=== PATIENT | female | born 1945 | race Caucasian/White ===

== ENCOUNTER 2020-08-03 13:58 | Inpatient (IN) | payer MEDICARE, OTHER ==
[~2020-08-03] VITALS: Ht 162.6 cm; Wt 95.3 kg
--- NOTE | 2020-08-03 14:30 | NUR ---
RAPID COVID SWAB DONE AND SENT TO LAB
[2020-08-03] MEDS ORDERED: ROSU20TA32 PO (14:39)
[2020-08-03] MEDS ORDERED: VALS160T29 PO (14:39)
[2020-08-03] MEDS ORDERED: APIX5TAB PO (14:39)
[2020-08-03] MEDS ORDERED: HYDR-4076 PO (14:39)
[2020-08-03 14:40] LABS: BASOPHILS # (AUTO) 0.1 /CMM (0.0-0.2); BASOPHILS % (AUTO) 0.8 % (0.0-2.0); EOSINOPHILS % (AUTO) 0.6 % (0.0-6.0); HEMATOCRIT 36 % (33-45); HEMOGLOBIN 11.6 g/dL (11.5-14.8); LYMPHOCYTES # (AUTO) 1.6 /CMM (0.8-4.8); LYMPHOCYTES % (AUTO) 21.4 % (20.0-44.0); MEAN CORPUSCULAR HGB CONC 32 g/dl (31.0-36.0); MEAN CORPUSCULAR VOLUME 88 fL (82-100); MONOCYTES # (AUTO) 0.4 /CMM (0.1-1.30); NEUTROPHILS # (AUTO) 5.2 /CMM (1.8-8.9); NEUTROPHILS % (AUTO) 71.2 % (43.0-81.0); PLATELET COUNT (AUTO) 232 /CMM (150-450); RED BLOOD CELL COUNT(AUTO) 4.09 MIL/uL (4.0-5.2); WHITE BLOOD COUNT (AUTO) 7.3 K/uL (4.3-11.0)
[2020-08-03 14:48] LABS: CARBON DIOXIDE 24 mmol/L (21-32); CHLORIDE 108 mmol/L (98-107); CREATININE 1.4 mg/dL (0.6-1.3); GLUCOSE 113 mg/dL (74-106); POTASSIUM 4.3 mmol/L (3.5-5.1); SODIUM SERUM 141 mmol/L (136-145); UREA NITROGEN, BLOOD 33 mg/dL (7-18)
--- NOTE | 2020-08-03 14:58 | NUR ---
DR GREEN AT BEDSIDE
[2020-08-03] MEDS ORDERED: MAGNESIUM HYDROXIDE 30 ML UDC PO PRN (15:00)
[2020-08-03] MEDS ORDERED: ACETAMINOPHEN 325 MG TABLET PO PRN (15:00)
[2020-08-03] MEDS ORDERED: Z GUARD REMEDY 2 OZ OINT TP PRN (15:00)
[2020-08-03] MEDS ORDERED: ONDANSETRON HCL/PF 4 MG/2 ML VIAL IVP PRN (15:00)
[2020-08-03] MEDS ORDERED: ZOLPIDEM TARTRATE 5 MG TABLET PO PRN (15:00)
[2020-08-03] MEDS ORDERED: MAG HYDROX/AL HYDROX/SIMETH 30 ML UDC PO PRN (15:00)
--- NOTE | 2020-08-03 15:00 | NUR ---
PATIENT VERBALIZED THAT THE LAST TIME SHE ATE AND DRANK FLUIDS WAS 0700. DR NORMA COMBS
--- NOTE | 2020-08-03 15:02 | NUR ---
PATIENT SIGNED CONSENT FOR PACEMAKER INSERTION, ANESTHESIA AND BLOOD TRANSFUSION
[2020-08-03] MEDS ORDERED: LIDOCAINE HCL/MPF 1% 30 ML VIAL IJ ONE (15:55)
[2020-08-03] MEDS ORDERED: ANESTHESIA TRAY IN PYXIS 1 EA TRAY MC ONE (15:55)
[2020-08-03] MEDS ORDERED: CELLULOSE,OXIDIZED 1 PKT EACH MC ONE (16:25)
[2020-08-03] MEDS ORDERED: APIXABAN 5 MG TABLET PO SCH (17:00)
[2020-08-03] MEDS ORDERED: hydrALAZINE HCL 25 MG TABLET PO SCH (17:00)
--- NOTE | 2020-08-03 17:30 | NUR ---
PT RECEIVED FROM OR AFTER REPORT RECEIVED FROM ELPIDIO MEZA. PT RESTING COMFORTABLY IN BED. PT ORIENTED TO RN, ROOM, AND UNIT POLICIES REGARDING PATIENT CARE. PT PLACED ON TELE MONITOR; READING ON ARRIVAL IS PACED AT 60. SURGICAL SITE ASSESSED. NO S/S BLEEDING OR INFECTION. WILL CONTINUE PLAN OF CARE.
[2020-08-03] MEDS ORDERED: HYDROCODONE/APAP 5/325MG TABLET PO PRN ×2 (18:00)
[2020-08-03] MEDS ORDERED: MORPHINE SULFATE INJ 2 MG/ML DISP.SYRIN IV PRN (18:00)
[2020-08-03] MEDS ORDERED: ATORVASTATIN 40 MG TABLET PO SCH (18:00)
[2020-08-03] MEDS: VALSARTAN 80 MG TABLET PO SCH (18:25)
[2020-08-03] MEDS: ATORVASTATIN 40 MG TABLET PO SCH (18:26)
[2020-08-03] MEDS: APIXABAN 5 MG TABLET PO SCH (18:32)
[2020-08-03 20:00] VITALS: BP 112/57
[2020-08-04] VITALS (9 sets, daily range): BP systolic 112–149; BP diastolic 69–85
--- NOTE | 2020-08-04 07:30 | NUR ---
MS/RN Opening note Patient received from manufacturing shift supervisor. A/O X4, vital signs stable, denies any pain or discomfort at this time. Dressing to left chest wall from pacemaker insertion yesterday clean and dry. Heplock to left forearm flushing well with normal saline, no signs of infiltration seen. All questions and concerns addressed/answered. Safety measures in place, bed in low setting, side rails X3 in upright position. Call light within reach, will continue to monitor and ensure safety.
[2020-08-04] MEDS: APIXABAN 5 MG TABLET PO SCH ×2 (08:29→19:41)
[2020-08-04] MEDS ORDERED: FUROSEMIDE 20 MG/2 ML VIAL IV ONE (08:30)
[2020-08-04] MEDS: VALSARTAN 80 MG TABLET PO SCH ×2 (08:34→19:39)
[2020-08-04] MEDS: METOPROLOL TARTRATE 25 MG TABLET PO SCH ×2 (08:36→21:07)
--- NOTE | 2020-08-04 08:45 | NUR ---
MS/RN S/B Dr Yadav Seen by MD - concerned for pacemaker lead detachment. Stat 2D echo and chest x-ray ordered.
[2020-08-04] MEDS: AMIODARONE HCL 200 MG TABLET PO SCH ×2 (09:50→21:07)
--- NOTE | 2020-08-04 10:08 | NUR ---
MS/RN Chest x-ray Chest x-ray resulted as pacemaker right atrial lead position change. Correlation recommended for atrial lead detachment.
--- NOTE | 2020-08-04 10:55 | NUR ---
MS/RN Dr Espinosa [facility] called to page Dr Espinosa to inform of chest x-ray results, no answer at exchange. Will reattempt to call in 10 minutes.
[2020-08-04] MEDS: HYDROCODONE/APAP 5/325MG TABLET PO PRN ×2 (12:35→19:50)
[2020-08-04] MEDS ORDERED: IOHEXOL 240MG/ML 0 ML IV ONE (16:04)
[2020-08-04] MEDS ORDERED: LIDOCAINE HCL/MPF 1% 30 ML VIAL IJ ONE (16:04)
--- NOTE | 2020-08-04 16:06 | NUR ---
MS/emergency room clinician Patient transported to operating room in stable condition.
[2020-08-04] MEDS ORDERED: FENTANYL PF 100MCG/2ML AMPUL ONE (16:17)
--- NOTE | 2020-08-04 17:46 | NUR ---
MS/RN Post operative Patient received back from operating room, s/p reinsertion of pacemaker right atrial lead. Upon return, vital signs recorded as per protocol, all within normal limits. Tele showing rhythm of pacing, heart rate 83. Dressing to left chest wall dry and intact. Will continue to monitor and ensure safety.
--- NOTE | 2020-08-04 18:31 | NUR ---
MS/RN End note Patient remains in stable condition, no drainage noted through dressing to left chest wall. Requesting to take evening medications after eating later this evening as still feeling lethargic following surgery. Vital signs charted, no fever noted, denies any pain or discomfort. Will endorse to operations supervisor 2nd shift.
[2020-08-04] MEDS: ATORVASTATIN 40 MG TABLET PO SCH (19:40)
[2020-08-05] VITALS: BP 121/68
[2020-08-05 04:00] VITALS: BP 144/96
[2020-08-05 07:01] LABS: BASOPHILS % (AUTO) 0.3 % (0.0-2.0); EOSINOPHILS % (AUTO) 0.4 % (0.0-6.0); HEMATOCRIT 39 % (33-45); HEMOGLOBIN 12.7 g/dL (11.5-14.8); LYMPHOCYTES # (AUTO) 1.2 /CMM (0.8-4.8); MEAN CORPUSCULAR HGB CONC 33 g/dl (31.0-36.0); MEAN CORPUSCULAR VOLUME 86 fL (82-100); MONOCYTES # (AUTO) 0.7 /CMM (0.1-1.30); MONOCYTES % (AUTO) 11.1 % (2.0-12.0); NEUTROPHILS # (AUTO) 4.4 /CMM (1.8-8.9); NEUTROPHILS % (AUTO) 69.2 % (43.0-81.0); PLATELET COUNT (AUTO) 193 /CMM (150-450); WHITE BLOOD COUNT (AUTO) 6.4 K/uL (4.3-11.0)
[2020-08-05 07:18] LABS: ALBUMIN 3.3 g/dL (3.4-5.0); BILIRUBIN,TOTAL 0.6 mg/dL (0.2-1.0); CALCIUM, SERUM 8.7 mg/dL (8.5-10.1); CREATININE 1.3 mg/dL (0.6-1.3); POTASSIUM 4.2 mmol/L (3.5-5.1); TOTAL PROTEIN, SERUM 7.6 g/dL (6.4-8.2)
--- NOTE | 2020-08-05 07:33 | NUR ---
RN NOTES Pt asleep on bed, no new complaints made. All nursing needs attended, due meds given as ordered. Endorsed.
[2020-08-05 08:00] VITALS: BP 142/88
--- NOTE | 2020-08-05 08:00 | NUR ---
received in am alert and oriented x4.lt. chest dressing dry and intact.vs stable.hob elevated.
[2020-08-05] MEDS: METOPROLOL TARTRATE 25 MG TABLET PO SCH (08:55)
[2020-08-05] MEDS: AMIODARONE HCL 200 MG TABLET PO SCH (08:56)
[2020-08-05] MEDS: APIXABAN 5 MG TABLET PO SCH (08:57)
[2020-08-05 09:00] VITALS: BP 117/67
[2020-08-05] MEDS: VALSARTAN 80 MG TABLET PO SCH (09:00)
[2020-08-05] MEDS: HYDROCODONE/APAP 5/325MG TABLET PO PRN (09:06)
--- NOTE | 2020-08-05 09:06 | NUR ---
medicated for chest pain with norco.
--- NOTE | 2020-08-05 13:20 | NUR ---
dr. castro in and dc order given.hep lock dc'd.given dc instructions.taken to lobby via w/c.being picked up by friend.all paperwork with pt.
== END 2020-08-05 13:15 | disposition home or self-care (01) | DRG 242 ==
LOC: ER 14:01 → MED 16:50 → TELE 21:43
PROVIDERS: ADMIT Family Medicine; ATTEND Family Medicine
PROC: 0JH606Z Insertion of Pacemaker, Dual Chamber into Chest Subcutaneous Tissue and Fascia, Open Approach (ICD-10-PCS; principal; 2020-08-03)
PROC: 02H63JZ Insertion of Pacemaker Lead into Right Atrium, Percutaneous Approach (ICD-10-PCS; 2020-08-03)
PROC: 02HK3JZ Insertion of Pacemaker Lead into Right Ventricle, Percutaneous Approach (ICD-10-PCS; 2020-08-03)
PROC: 02WA3MZ Revision of Cardiac Lead in Heart, Percutaneous Approach (ICD-10-PCS; 2020-08-04)
DX: I49.5 Sick sinus syndrome (principal); I50.33 Acute on chronic diastolic (congestive) heart failure; N17.0 Acute kidney failure with tubular necrosis; T82.128A Displacement of other cardiac electronic device, initial encounter; I13.0 Hypertensive heart and chronic kidney disease with heart failure and stage 1 through stage 4 chronic kidney disease, or unspecified chronic kidney disease; E66.9 Obesity, unspecified; E78.5 Hyperlipidemia, unspecified; I48.0 Paroxysmal atrial fibrillation; Z79.01 Long term (current) use of anticoagulants; Z95.0 Presence of cardiac pacemaker; R73.9 Hyperglycemia, unspecified; Z68.36 Body mass index [BMI] 36.0-36.9, adult; Y83.8 Other surgical procedures as the cause of abnormal reaction of the patient, or of later complication, without mention of misadventure at the time of the procedure; Y92.230 Patient room in hospital as the place of occurrence of the external cause; N18.30 Chronic kidney disease, stage 3 unspecified; Z20.822 Contact with and (suspected) exposure to COVID-19
CPT/HCPCS: 36415; 71045-TC; 80048-TC; 80053-TC; 85025-TC; 85610-TC; 86850-TC; 87081-TC; 93307-TC; C1786; C9803; G0378; J0690; J1940; J2704; J3010; J3490; Q9966